=== PATIENT | male | born 1990 | race Caucasian/White ===

== ENCOUNTER 2021-06-10 13:25 | Emergency (ER) | payer BC, MEDICAID ==
[~2021-06-10] VITALS: Ht 188 cm; Wt 79.4 kg
[2021-06-10 17:11] LABS: Urine Bacteria FEW /hpf (None Seen); Urine Blood Negative /uL (Negative); Urine Specific Gravity 1.023 (1.001-1.035); Urine WBC 12 /hpf (0 - 3)
[2021-06-10 19:37] VITALS: BP 136/90
[2021-06-10 20:38] LABS: Alcohol, Urine < 3.0 mg/dL (0-10); Amphetamine Screen, Urine NEGATIVE (NEGATIVE); Barbiturate Scree,Urine NEGATIVE (NEGATIVE); Benzodiazephine Screen, Urine NEGATIVE (NEGATIVE); Cannabinoid Screen, Urine POSITIVE (NEGATIVE); Cocaine Screen, Urine NEGATIVE (NEGATIVE); Opiate Scree,Urine NEGATIVE (NEGATIVE); Phencyclidine Screen, Urine NEGATIVE (NEGATIVE)
[2021-06-10] MEDS ORDERED: NITR-87 PO (21:00)
== END 2021-06-10 21:14 | disposition home or self-care (01) ==
LOC: ER 13:25
DX: F41.8 Other specified anxiety disorders (principal); N39.0 Urinary tract infection, site not specified; Z79.899 Other long term (current) drug therapy
CPT/HCPCS: 80307; 81001

== ENCOUNTER 2024-03-12 18:59 | Emergency (ER) | payer MEDICAID, OTHER ==
[~2024-03-12] VITALS: Ht 190.5 cm; Wt 88.3 kg
[~2024-03-12 18:59] MED LIST: NITR-87 PO
--- NOTE | 2024-03-12 19:52 | DVH ---
CLINICAL INDICATION: INJURY/PAIN TECHNIQUE: 3 radiographic views of the right shoulder were obtained. Comparison: None FINDINGS/IMPRESSION: Elevation of the distal clavicle is noted in relation to the acromion. There is no acute fracture. Fi ndings are consistent with an grade 3 AC separation age indeterminate. There is no fractures. The visualized joint space is well maintained. The alignment is anatomical. There is no radiopaque foreign body.
[2024-03-12 20:12] VITALS: BP 136/80; PULSE 84; RESP 20; TEMP 99.2; O2SAT 99
[2024-03-12] MEDS: KETOROLAC TROMETH 60MG/2ML VIAL IM ONE (20:18)
[2024-03-12] MEDS: OXYCODONE W/ ACETAMINOPHEN 5/325MG TABLET PO ONE (20:18)
[2024-03-12] MEDS ORDERED: TIZA-142 PO (20:31)
[2024-03-12] MEDS ORDERED: METH4PAK PO (20:31)
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
== END 2024-03-12 21:12 | disposition home or self-care (01) ==
LOC: ER 18:59
DX: S43.101A Unspecified dislocation of right acromioclavicular joint, initial encounter (principal); W22.8XXA Striking against or struck by other objects, initial encounter; Y93.55 Activity, bike riding; Y92.89 Other specified places as the place of occurrence of the external cause; Y99.8 Other external cause status
CPT/HCPCS: 73030; 96372; 99283; J1885